=== PATIENT | male | born 1965 | race Caucasian/White ===

== ENCOUNTER 2016-08-04 18:28 | Emergency (ER) | payer MEDICAID ==
[2016-08-04] MEDS ORDERED: NACL 0.9% 1000 ML 1,000 ML IV ONE (20:28)
--- NOTE | 2016-08-04 20:28 | Emergency Department Report ---
ED Rash HPI - [facility] Chief Complaint: Skin Rash Stated Complaint: RASH FACE/BODY Time Seen by Provider: 08/04/16 20:01 ED Review of Systems ROS: Stated complaint: RASH FACE/BODY Other details as noted in HPI ED Past Medical Hx - Past Medical History Hx HIV: Yes Additional medical history: PSORIOSIS / - Surgical History Past Surgical History?: No - Social History Smoking Status: Never Smoker Substance Use Type: None Rash Exam - Exam General: Vital signs noted. No distress. Alert and acting appropriately. ED Course Vital Signs 08/04/16 19:14 Temperature 99.6 F Pulse Rate 92 H Respiratory 18 Rate Blood Pressure 142/100 O2 Sat by Pulse 99 Oximetry Critical care attestation.: If time is entered above; I have spent that time in minutes in the direct care of this critically ill patient, excluding procedure time. ED Disposition Condition: Stable Referrals: PRIMARY CARE, [Primary Care Provider] - 3-5 Days
[2016-08-04 20:56] LABS: Basophils % (Auto) 1.3 % (0.0-1.8); Eosinophils % (Auto) 15.1 % (0.0-4.3); Hematocrit 43.6 % (35.5-45.6); Hemoglobin 14.1 gm/dl (11.8-15.2); Mean Corpuscular HGB Conc 32 % (32-34); Mean Corpuscular Hemoglobin 27 pg (28-32); Mean Corpuscular Volume 82 fl (84-94); Platelet Count 324 K/mm3 (140-440); Red Blood Count 5.34 M/mm3 (3.65-5.03); Red Cell Distribution Width 13.6 % (13.2-15.2); White Blood Count 5.8 K/mm3 (4.5-11.0)
--- NOTE | 2016-08-04 20:56 | Emergency Department Report ---
ED General Adult HPI - General Chief complaint: Skin Rash Stated complaint: RASH FACE/BODY Time Seen by Provider: 08/04/16 20:01 Source: patient Mode of arrival: Ambulatory Limitations: No Limitations - History of Present Illness Initial comments: This is a 50-year-old male that presents with erythema, swelling and scaly rash of the right face, head, trunk, abdomen, upper and lower extremities. Patient stated the symptoms has been going on for approximately 3 days. Patient stated has a history of diagnosed psoriasis. Patient stated last psoriasis episode was in 2007. Patient states feeling of burning sensation throughout the body. Patient also states pressure pain in the head where the rash is present. Patient has a history of HIV. Patient does not know his CD4 count. He stated last check was last year. Patient denies taking any medications for HIV. Patient stated had a fever today which he took ibuprofen [id number] to reduce it. Patient also complains of body chills. Patient denies shortness of breath, chest pain, nausea vomiting, thunderclap headache, or abdominal pain. Patient denies known drug allergies. Patient does not seem toxic or ill in appearance. No signs of any distress noted. MD Complaint: Rash -: Gradual, days(s) (3 days) Location: head, face, neck, back, abdomen, left, right, upper extremity, lower extremity Radiation: non-radiation Severity scale (0 -10): 9 Quality: burning, aching, constant Consistency: constant Improves with: none Associated Symptoms: fever/chills, headaches. denies: confusion, chest pain, cough, diaphoresis, loss of appetite, malaise, nausea/vomiting, rash, seizure, shortness of breath, syncope, weakness - Related Data Previous Rx's Medication Instructions Recorded Last Taken Type Prednisone [predniSONE] 40 mg PO QDAY 5 Days 08/04/16 Unknown Rx Sulfamethoxazole/Trimethoprim 1 each PO BID 7 Days 08/04/16 Unknown Rx [Bactrim DS TAB] Allergies Allergy/AdvReac Type Severity Reaction Status Date / Time No Known Allergies Allergy Verified 08/04/16 19:14 ED Review of Systems ROS: Stated complaint: RASH FACE/BODY Other details as noted in HPI Constitutional: denies: chills, fever Eyes: denies: eye pain, eye discharge, vision change ENT: denies: ear pain, throat pain Respiratory: denies: cough, shortness of breath, wheezing Cardiovascular: denies: chest pain, palpitations Endocrine: no symptoms reported Gastrointestinal: denies: abdominal pain, nausea, diarrhea Genitourinary: denies: urgency, dysuria Musculoskeletal: denies: back pain, joint swelling, arthralgia Skin: rash, pruritus, other. denies: lesions, change in color, change in hair/ nails Neurological: denies: headache, weakness, paresthesias Psychiatric: denies: anxiety, depression Hematological/Lymphatic: denies: easy bleeding, easy bruising ED Past Medical Hx - Past Medical History Hx HIV: Yes Additional medical history: PSORIOSIS / - Surgical History Past Surgical History?: No - Social History Smoking Status: Never Smoker Substance Use Type: None - Medications Home Medications: Home Medications Medication Instructions Recorded Confirmed Last Taken Type Prednisone [predniSONE] 40 mg PO QDAY 5 Days 08/04/16 Unknown Rx Sulfamethoxazole/Trimethoprim 1 each PO BID 7 Days 08/04/16 Unknown Rx [Bactrim DS TAB] ED Physical Exam - General Limitations: No Limitations General appearance: alert, in no apparent distress - Head Head exam: Present: atraumatic, normocephalic - Eye Eye exam: Present: normal appearance, PERRL, EOMI - ENT ENT exam: Present: mucous membranes moist - Neck Neck exam: Present: normal inspection - Respiratory Respiratory exam: Present: normal lung sounds bilaterally. Absent: respiratory distress - Cardiovascular Cardiovascular Exam: Present: regular rate, normal rhythm. Absent: systolic murmur, diastolic murmur, rubs, gallop - GI/Abdominal GI/Abdominal exam: Present: soft, normal bowel sounds - Rectal Rectal exam: Present: deferred - Extremities Exam Extremities exam: Present: normal inspection - Back Exam Back exam: Present: normal inspection - Neurological Exam Neurological exam: Present: alert, oriented X3 - Psychiatric Psychiatric exam: Present: normal affect, normal mood - Skin Skin exam: Present: warm, dry, intact, normal color. Absent: rash ED Course Vital Signs 08/04/16 19:14 Temperature 99.6 F Pulse Rate 92 H Respiratory 18 Rate Blood Pressure 142/100 O2 Sat by Pulse 99 Oximetry - Reevaluation(s) Reevaluation #1: 08/04/16 23:07 Dr. Mcrae has examined the patient and aware of lab results. Agreed to d/c with antibiotics. ED Medical Decision Making - Lab Data Result diagrams: 08/04/16 20:36 08/04/16 20:36 - Medical Decision Making Ed course: This is a 50-year-old male that presents with psoriasis 1- Dr. mcrae has assessed the patient and agrees to d/c plan and treatment. 2- Patient received IV normal saline 1000 in the ED. 3- CBC,BMP, Liver panel, CK, Lactic acid, and blood culture obtained in the ED. Dr. Mcrae is aware of results. 4- patient received Bactrim and prednisone by mouth at time of discharge. 5- I instructed the patient if sinus symptoms worsen to report back to emergency room. 6- patient agrees a discharge planning treatment. Patient they will follow up with her primary care doctor by tomorrow. No further questions noted by the patient. 7- I also instructed the patient to come back by tomorrow to receive the pending lab results. 8- I also instructed the patient the importance of following up with her primary care doctor 4 days CD4 count and possibility of medication for HIV. Critical care attestation.: If time is entered above; I have spent that time in minutes in the direct care of this critically ill patient, excluding procedure time. ED Disposition Clinical Impression: Psoriasis Disposition: DISCHARGED TO HOME OR SELFCARE Is pt being admited?: No Does the pt Need Aspirin: No Condition: Stable Instructions: Prednisone (By mouth), Psoriasis (ED) Additional Instructions: Follow-up with your primary care doctor by tomorrow. If symptoms worsen such as fever, body aches, pus, drainage, worsening of symptoms report back to emergency room Take Medication as prescribed. Finish full course of prednisone and Bactrim. Prescriptions: Prednisone [predniSONE] 40 mg PO QDAY 5 Days Sulfamethoxazole/Trimethoprim [Bactrim DS TAB] 1 each PO BID 7 Days Referrals: [facility] [Outside] - 3-5 Days [facility] [Outside] - 3-5 Days ANA HAY MD [Staff Physician] - 3-5 Days VALERI SINGLETARY MD [Referring] - 3-5 Days WILLOW RAYA MD [Referring] - 3-5 Days AI HAMMONDS MD [Referring] - 3-5 Days PRIMARY CAREMD [Primary Care Provider] - 24 Hours Forms: Work/School Release Form(ED)
[2016-08-04 21:11] LABS: Anion Gap 18 mmol/L; BUN/Creatinine Ratio 16.25; Blood Urea Nitrogen 13 mg/dL (9-20); Calcium 9.5 mg/dL (8.4-10.2); Carbon Dioxide 26 mmol/L (22-30); Chloride 96.7 mmol/L (98-107); Glucose 92 mg/dL (75-100); Sodium 137 mmol/L (137-145)
[2016-08-04 21:49] LABS: Alanine Aminotransferase 23 units/L (7-56); Albumin 5.2 g/dL (3.9-5); Albumin/Globulin Ratio 1.1 %; Alkaline Phosphatase 103 units/L (35-129); Bilirubin,Total 0.6 mg/dL (0.1-1.2); Creatine Kinase 122 units/L (55-170); Total Protein 9.8 g/dL (6.3-8.2)
[2016-08-04 21:52] LABS: Bilirubin,Direct < 0.2 mg/dL (0-0.2); Bilirubin,Indirect 0.4 mg/dL
[2016-08-04 23:54] VITALS: BP 125/86
== END 2016-08-05 00:13 | disposition home or self-care (01) ==
LOC: ED 18:28
DX: L40.9 Psoriasis, unspecified (principal)
CPT/HCPCS: 36415; 80048; 80074; 82140; 82550; 85025; 87040; 96360; 99283; J7030